=== PATIENT | male | born 1945 | race Caucasian/White ===

== ENCOUNTER → 2016-12-26 | Outpatient (CLI) | payer MEDICARE, OTHER ==
[2016-12-26 11:30] LABS: HEMOGLOBIN 15.3 g/dL (14.1-18.0); LYMPH # 1.6 K/mm3 (0.7-4.5)
[2016-12-26 14:20] LABS: BUN 16 mg/dL (7-18)
[2016-12-26 14:21] LABS: GFR (ESTIMATED) 66 ML/MIN (>60)
[2016-12-27 08:55] LABS: RA Latex Turbid. 16.5 IU/mL (0.0-13.9)
[2016-12-28 03:41] LABS: CCP Antibodies IgG/IgA 30 units (0-19)
[2016-12-30 10:39] LABS: Antinuclear Antibodies, IFA Negative (.)
== END ==
LOC: LAB 10:52
PROVIDERS: Internal Medicine Adolescent Medicine
DX: L52 Erythema nodosum (principal); M12.9 Arthropathy, unspecified